=== PATIENT | female | born 1940 | race Caucasian/White ===

== ENCOUNTER → 2016-06-28 17:06 | Outpatient (CLI) | payer MEDICARE, OTHER | END | disposition home or self-care (01) | LOC: D.MAMMO 14:15 | DX: Z12.31 Encounter for screening mammogram for malignant neoplasm of breast (principal) ==

== ENCOUNTER → 2016-07-05 16:47 | Outpatient (CLI) | payer MEDICARE, OTHER | END | disposition home or self-care (01) | LOC: D.MAMMO 12:00 | DX: R92.8 Other abnormal and inconclusive findings on diagnostic imaging of breast (principal) ==

== ENCOUNTER → 2017-08-28 20:02 | Outpatient (CLI) | payer MEDICARE, OTHER | END | disposition home or self-care (01) | LOC: D.MAMMO 13:45 | DX: Z12.31 Encounter for screening mammogram for malignant neoplasm of breast (principal) ==

== ENCOUNTER 2018-07-18 05:45 | Day surgery (SDC) | payer MEDICARE, OTHER ==
[2018-07-17 10:25] LABS: BASOPHILS 0.4 % (0-2); EOSINOPHILS 4.8 % (0-7); HEMATOCRIT 39.5 % (36.0-48.0); IMMATURE GRANULOCYTES 0.3 % (0-5); LYMPHOCYTES 21.1 % (15-50); MCH 30.9 pg (26.0-34.0); MCHC 32.9 g/dL (31.0-37.0); MCV 93.8 fL (80.0-100.0); MEAN PLATELET VOLUME 8.9 fL (7.4-10.4); MONOCYTES 10.2 % (2-11); NEUTROPHILS 63.2 % (40-80); PLATELET COUNT 266 10x3/uL (130-400); RBC 4.21 10x6/uL (4.00-5.40); RDW 14.1 % (11.5-14.5); WBC 7.5 10x3/uL (4.8-10.8)
[2018-07-17 10:35] LABS: ANION GAP 11.9 mmol/L (8-16); CALCIUM 8.5 mg/dL (8.5-10.1); CARBON DIOXIDE 29.4 mmol/L (21.0-32.0); POTASSIUM - SERUM 4.3 mmol/L (3.5-5.1)
[~2018-07-18] VITALS: Ht 165.1 cm; Wt 86.6 kg
[~2018-07-18 05:45] MED LIST: BAYER CHEWABLE81 MG PO; CALCIUM 600 +1 EAC3 PO; FLUTICASONE PRO16 GM NASAL; LEVOTHYROXINE75 MCG PO; MELATONIN5 MG PO; OMEPRAZOLE CAP 20M PO; PRAVACHOL20 MG PO; PRESERVISION; RESTORIL15 MG PO
[2018-07-18 06:30] VITALS: BP 144/70; Ht 165.1 cm; Wt 86.6 kg
--- NOTE | 2018-07-18 08:31 | NUR ---
PRECIOUS SMAS TOOK OFF WEDDING RING AND BAND, TOOK TO EBEN CELAYA IN PACU
[2018-07-18] MEDS ORDERED: HYDROCODON-ACE1 EA10 PO (08:47)
--- NOTE | 2018-07-18 09:09 | NUR ---
REDNESS ON RING FINGER WHERE WEDDING RING AND BAND WERE REMOVED
--- NOTE | 2018-07-18 09:30 | NUR ---
REC'D FROM RR. FAMILY CURRENTLY NOT AT BEDSIDE. GURWINDER DAVIDSON SERVED TO PT. DRESSING CDI TO LEFT GROIN.
--- NOTE | 2018-07-18 10:00 | NUR ---
GURWINDER DAVIDSON BROUGHT TO PT. FAMILY AT BEDSIDE.
--- NOTE | 2018-07-18 11:25 | NUR ---
IV DC'D WITH CATHETER INTACT. WRITTEN AND VERBAL DC INST GIVEN TO PT ALONG WITH RX. VERBALIZED INDERSTANDING.
--- NOTE | 2018-07-18 11:35 | NUR ---
DC'D HOME WITH FAMILY VIA PRIVATE VEHICLE. TAKEN TO VEHICLE VIA WC. STABLE AT TIME OF DC.
--- NOTE | 2018-08-01 09:41 | OP ---
PATIENT NAME: ANDRES NINO MEDICAL RECORD: [id number] :38 LOCATION:D.OPS ADMISSION DATE: SURGEON: DAVID PONCE MD DATE OF OPERATION: 07/18/2018 PREOPERATIVE DIAGNOSES: 1. Left inguinal hernia. 2. Hypercholesterolemia. POSTOPERATIVE DIAGNOSES: 1. Left inguinal hernia. 2. Hypercholesterolemia. PROCEDURE: Left inguinal hernia repair with medium PHS mesh. SURGEON: David Ponce MD ACADEMIC SPECIALIST: Lizeth Pierce APRN REPORT OF OPERATION: The patient's left groin was prepped and draped in sterile fashion. An oblique incision was made above the inguinal ligament. Electrocautery was used to dissect through the subcutaneous tissues down to the external oblique fascia. This fascia actually had a defect within it, probably from previous Pfannenstiel incision. This defect had fatty tissue extending through it. We opened up the external oblique fascia to the external ring. At this point, we could clearly see there was a hernia defect with fatty tissue extending through it. The hernia defect was about 2 cm in greatest diameter. We were able to easily push the contents back into the abdominal cavity. We freed up the preperitoneal space of Retzius and inserted a medium PHS mesh. This was sutured down on all 4 sides using multiple interrupted 0 Vicryls. The ilioinguinal nerve was then found and high ligated. We irrigated out the wound and assured there was no sign of any bleeding. The external oblique fascia was then closed with running 2-0 Vicryl, Brad's was closed with interrupted 3-0 Vicryl and the skin was closed with running subcutaneous 5-0 Monocryl. A total of 10 mL of 0.25% Marcaine with epinephrine was infused into the surrounding tissues and the wound was dressed appropriately. COMPLICATIONS: None. CONDITION: Stable. ANESTHESIA: General endotracheal and local. BLOOD LOSS: Minimal. TRANSINT:[id number] Voice Confirmation ID: [id number] DOCUMENT ID: [id number] OPERATIVE REPORT [id number] ANDRES NINO CHRISTIAN MD at 0941 CC: PIO RUGGIERO [id number] DICTATION DATE: 07/18/18 0902 SAFETY INSPECTOR: 07/18/18 1053 [facility] 07/18/18 [facility] [address] [place] [address]
== END 2018-07-18 11:35 | disposition home or self-care (01) ==
LOC: D.OPS 05:45 → D.PAN 08:00 → D.OPS 08:00
PROVIDERS: Surgery
DX: K40.90 Unilateral inguinal hernia, without obstruction or gangrene, not specified as recurrent (principal); E78.00 Pure hypercholesterolemia, unspecified

== ENCOUNTER 2019-01-20 08:00 | Outpatient (CLI) | payer MEDICARE, OTHER ==
[2018-07-18 06:30] VITALS: BMI 31.8
[~2019-01-20 08:00] MED LIST changes: +HYDROCODON-ACE1 EA10 PO
== END 2019-01-20 23:59 | disposition home or self-care (01) ==
LOC: D.MAMMO 08:00
PROVIDERS: ATTEND Family Medicine
DX: Z12.31 Encounter for screening mammogram for malignant neoplasm of breast (principal)

== ENCOUNTER → 2019-10-08 10:47 | Outpatient (CLI) | payer MEDICARE, OTHER ==
[2018-07-18 06:30] VITALS: BMI 31.8
== END | disposition home or self-care (01) ==
LOC: D.CT 10:47
PROVIDERS: ATTEND Family Medicine
DX: C43.9 Malignant melanoma of skin, unspecified (principal)

== ENCOUNTER → 2019-10-10 08:29 | Outpatient (CLI) | payer MEDICARE, OTHER ==
[2018-07-18 06:30] VITALS: BMI 31.8
== END | disposition home or self-care (01) ==
LOC: D.MRI 08:29
PROVIDERS: ATTEND Family Medicine
DX: C41.2 Malignant neoplasm of vertebral column (principal)

== ENCOUNTER 2020-02-16 16:15 | Outpatient (CLI) | payer MEDICARE, OTHER ==
[2018-07-18 06:30] VITALS: BMI 31.8
== END 2020-02-16 17:15 | disposition home or self-care (01) ==
LOC: D.MAMMO 16:15
PROVIDERS: ATTEND Family Medicine
DX: Z12.31 Encounter for screening mammogram for malignant neoplasm of breast (principal)

== ENCOUNTER → 2020-10-04 11:31 | Outpatient (CLI) | payer MEDICARE, OTHER ==
[2018-07-18 06:30] VITALS: BMI 31.8
[2020-10-04 12:30] LABS: CREATININE - SERUM 0.9 mg/dL (0.6-1.3)
== END | disposition home or self-care (01) ==
LOC: D.CT 11:30
PROVIDERS: ATTEND Family Medicine
DX: C43.30 Malignant melanoma of unspecified part of face (principal)

== ENCOUNTER → 2020-10-11 08:10 | Outpatient (CLI) | payer MEDICARE, OTHER ==
[2018-07-18 06:30] VITALS: BMI 31.8
[2020-10-11 08:36] LABS: CREATININE - SERUM 0.8 mg/dL (0.6-1.3)
== END | disposition home or self-care (01) ==
LOC: D.CT 08:10
PROVIDERS: ATTEND Family Medicine
DX: R91.1 Solitary pulmonary nodule (principal)